=== PATIENT | male | born 1980 | race Asian ===

== ENCOUNTER 2022-05-14 16:48 | Emergency (ER) | payer OTHER ==
[~2022-05-14] VITALS: Ht 182.9 cm; Wt 90.7 kg
[2022-05-14 16:55] VITALS: TEMP 98
[2022-05-14 17:29] LABS: PLATELET COUNT 270 K/uL (142-355)
[2022-05-14 17:39] LABS: POTASSIUM 4.1 mmol/L (3.6-5.2)
[2022-05-14 19:35] VITALS: BP 154/94
== END 2022-05-14 19:35 | disposition home or self-care (01) ==
LOC: ED 16:48
PROVIDERS: Emergency Medicine
DX: R07.89 Other chest pain (principal); E86.0 Dehydration; E16.1 Other hypoglycemia
CPT/HCPCS: 36415; 80048; 84484; 85027; 85379; 93005; 96360; 99284